=== PATIENT | male | born 1970 | race Caucasian/White ===

== ENCOUNTER 2017-06-04 15:19 | Emergency (ER) | payer OTHER ==
[~2017-06-04] VITALS: Ht 190.5 cm; Wt 172.4 kg
[2017-06-04 16:03] VITALS: BP 127/75
== END 2017-06-04 16:46 | disposition home or self-care (01) ==
LOC: ER 15:26
DX: M54.5 Low back pain (principal); M25.512 Pain in left shoulder; M25.511 Pain in right shoulder; W18.39XA Other fall on same level, initial encounter; Y93.89 Activity, other specified; Y92.89 Other specified places as the place of occurrence of the external cause; Y99.0 Civilian activity done for income or pay

== ENCOUNTER 2017-06-08 13:44 | Emergency (ER) | payer OTHER ==
[~2017-06-08] VITALS: Ht 190.5 cm; Wt 185.1 kg
[2017-06-08 13:53] VITALS: BP 129/79
== END 2017-06-08 14:48 | disposition home or self-care (01) ==
LOC: ER 13:46
DX: G89.29 Other chronic pain (principal); M54.5 Low back pain; E66.9 Obesity, unspecified; Z68.43 Body mass index [BMI] 50.0-59.9, adult; Z76.0 Encounter for issue of repeat prescription

== ENCOUNTER 2017-06-23 15:05 | Emergency (ER) | payer OTHER ==
[~2017-06-23] VITALS: Ht 190.5 cm; Wt 174.6 kg
[2017-06-23 15:49] VITALS: BP 143/94
== END 2017-06-23 16:34 | disposition home or self-care (01) ==
LOC: ER 15:09
DX: G89.29 Other chronic pain (principal); M54.5 Low back pain; E66.9 Obesity, unspecified; Z68.42 Body mass index [BMI] 45.0-49.9, adult

== ENCOUNTER 2017-07-02 14:51 | Emergency (ER) | payer OTHER ==
[~2017-07-02] VITALS: Ht 190.5 cm; Wt 174.6 kg
[2017-07-02 14:55] VITALS: BP 130/76
== END 2017-07-02 16:41 | disposition home or self-care (01) ==
LOC: ER 14:54
DX: G89.29 Other chronic pain (principal); M25.561 Pain in right knee; Z76.0 Encounter for issue of repeat prescription

== ENCOUNTER 2017-07-09 14:57 | Emergency (ER) | payer OTHER ==
[~2017-07-09] VITALS: Ht 190.5 cm; Wt 174.6 kg
[2017-07-09 18:46] VITALS: BP 124/70
[2017-07-09] MEDS ORDERED: HYDROcodone-ACET 10/325MG TAB PO ONE (19:15)
== END 2017-07-09 19:24 | disposition home or self-care (01) ==
LOC: ER 15:01
DX: M25.512 Pain in left shoulder (principal); M54.5 Low back pain; X58.XXXA Exposure to other specified factors, initial encounter; Y93.89 Activity, other specified; Y99.8 Other external cause status; Y92.69 Other specified industrial and construction area as the place of occurrence of the external cause

== ENCOUNTER 2018-03-05 16:44 | Emergency (ER) | payer OTHER ==
[~2018-03-05] VITALS: Ht 190.5 cm; Wt 174.6 kg
[2018-03-05 17:11] VITALS: BP 121/73
== END 2018-03-05 17:58 | disposition home or self-care (01) ==
LOC: ER 16:48
DX: L03.115 Cellulitis of right lower limb (principal); I10 Essential (primary) hypertension; E66.01 Morbid (severe) obesity due to excess calories; Z68.42 Body mass index [BMI] 45.0-49.9, adult

== ENCOUNTER 2018-11-23 13:33 | Emergency (ER) | payer OTHER ==
[~2018-11-23] VITALS: Ht 190.5 cm; Wt 174.6 kg
[~2018-11-23 13:33] MED LIST: LISI10TA6 PO
[2018-11-23 15:01] LABS: Basophils # (auto) 0 uL; Basophils % (auto) 0.4 % (0.0-2.0); Eosinophils # (auto) 0.3 uL; Hematocrit 50.5 % (41.0-53.0); Hemoglobin 17.4 g/dL (13.5-17.5); Lymphocytes # (auto) 2.3 uL; Lymphocytes % (auto) 17.6 % (10.0-50.0); Mean Corpuscular Hemoglobin 32.2 pg (28.0-32.0); Mean Corpuscular Hgb Conc. 34.5 g/dL (32.0-36.0); Mean Corpuscular Volume 93.5 fL (80.0-100.0); Monocytes % (auto) 7.9 % (0.0-12.0); Neutrophils # (auto) 9.5 uL; Neutrophils % (auto) 72.1 % (37.0-80.0); Nucleated Red Blood Cells % 0.1 %; Platelet Count (auto) 296 10^3/uL (140-450); Red Cell Distribution Width 13.4 % (11.8-14.3); White Blood Cell 13.1 10^3/uL (4.4-10.8)
[2018-11-23 15:19] LABS: Albumin 3.7 g/dL (3.4-5.0); Calcium 8.7 mg/dL (8.5-10.1)
[2018-11-23 15:22] LABS: BUN/Creatinine Ratio 11.6; Bilirubin, Total 0.5 mg/dL (0.2-1.0); Total Protein 7.3 g/dL (6.4-8.2)
[2018-11-23 19:04] LABS: Urine Bacteria NONE SEEN /hpf (None Seen); Urine Blood Negative /uL (Negative); Urine Mucus FEW (None Seen); Urine Specific Gravity 1.027 (1.001-1.035); Urine WBC 1 /hpf (0 - 3)
[2018-11-23] MEDS ORDERED: cloNIDine HCL 0.1 MG TAB ONE (21:04)
[2018-11-23 21:06] VITALS: BP 158/101
[2018-11-23] MEDS ORDERED: cloNIDine HCL 0.1 MG TAB PO ONE (21:15)
== END 2018-11-23 21:09 | disposition home or self-care (01) ==
LOC: ER 13:33
DX: S31.105A Unspecified open wound of abdominal wall, periumbilic region without penetration into peritoneal cavity, initial encounter (principal); L03.316 Cellulitis of umbilicus; I10 Essential (primary) hypertension; X58.XXXA Exposure to other specified factors, initial encounter; Y93.89 Activity, other specified; Y92.89 Other specified places as the place of occurrence of the external cause; Y99.8 Other external cause status
CPT/HCPCS: 36415; 74176; 80053; 81001; 85025

== ENCOUNTER 2023-06-10 12:54 | Emergency (ER) | payer MEDICAID, OTHER ==
[~2023-06-10] VITALS: Ht 190.5 cm; Wt 183.4 kg
[~2023-06-10 12:54] MED LIST changes: +LISI10TA34 PO; -LISI10TA6 PO
[2023-06-10 15:27] VITALS: BP 145/82; PULSE 102; RESP 17; TEMP 97.3; O2SAT 95
[2023-06-10] MEDS ORDERED: HYDROcodone-ACET 10/325MG TAB PO ONE (15:30)
[2023-06-10] MEDS ORDERED: HYDR-4072 PO ×3 (16:15→16:44)
== END 2023-06-10 16:49 | disposition home or self-care (01) ==
LOC: ER 12:54
DX: M17.11 Unilateral primary osteoarthritis, right knee (principal); I10 Essential (primary) hypertension; X50.1XXA Overexertion from prolonged static or awkward postures, initial encounter; Y93.01 Activity, walking, marching and hiking; Y92.89 Other specified places as the place of occurrence of the external cause; Y99.8 Other external cause status
CPT/HCPCS: 73562; 73600

== ENCOUNTER 2023-06-21 17:43 | Emergency (ER) | payer MEDICAID ==
[~2023-06-21] VITALS: Ht 190.5 cm; Wt 182.0 kg
[~2023-06-21 17:43] MED LIST changes: +HYDR-4072 PO
[2023-06-21] MEDS ORDERED: HYDROcodone-ACET 5/325MG TAB PO ONE (20:00)
[2023-06-21] MEDS ORDERED: KETOROLAC TROMETH 60MG/2ML VIAL IM ONE (20:00)
[2023-06-21] MEDS ORDERED: DexAMETHasone SOD PHOS 10MG/1ML VIAL INJ IM ONE (20:00)
[2023-06-21] MEDS ORDERED: HYDR-4798 PO (20:11)
[2023-06-21 21:00] VITALS: BP 139/84; PULSE 79; RESP 18; TEMP 98; O2SAT 97
[2023-06-23] MEDS ORDERED: HYDR-4798 PO (02:13)
== END 2023-06-21 21:02 | disposition home or self-care (01) ==
LOC: ER 17:43
DX: M17.11 Unilateral primary osteoarthritis, right knee (principal); I10 Essential (primary) hypertension; Z76.0 Encounter for issue of repeat prescription; Z91.81 History of falling
CPT/HCPCS: 96372; 99284; J1100; J1885

== ENCOUNTER 2023-11-07 15:03 | Emergency (ER) | payer MEDICAID ==
[~2023-11-07] VITALS: Ht 190.5 cm; Wt 189.4 kg
[~2023-11-07 15:03] MED LIST changes: +HYDR-4798 PO
[2023-11-07] MEDS ORDERED: LORazepam 2MG/ML-1ML VIAL IM ONE (18:30)
[2023-11-07] MEDS ORDERED: HYDROmorphone HCL 2 MG/ML VL/or syr IM ONE (18:30)
[2023-11-07] MEDS ORDERED: ETOMIDATE (2MG/ML) 20ML VIAL IV ONE (19:15)
[2023-11-07 19:56] VITALS: BP 126/75; PULSE 76; RESP 15; TEMP 98.1; O2SAT 93
[2023-11-07 20:00] VITALS: PULSE 76
[2023-11-07] MEDS ORDERED: HYDR-4902 PO (22:26)
== END 2023-11-07 23:12 | disposition home or self-care (01) ==
LOC: ER 15:03
DX: S43.001A Unspecified subluxation of right shoulder joint, initial encounter (principal); I10 Essential (primary) hypertension; Z90.49 Acquired absence of other specified parts of digestive tract; Z79.899 Other long term (current) drug therapy; W18.39XA Other fall on same level, initial encounter; Y93.89 Activity, other specified; Y92.89 Other specified places as the place of occurrence of the external cause; Y99.8 Other external cause status
CPT/HCPCS: 23650; 73030; 99152; 99153; 99285; J1170